=== PATIENT | female | born 1985 ===

== ENCOUNTER 2018-02-12 07:30 | Outpatient (CLI) | payer OTHER ==
[~2018-02-12] VITALS: Ht 167.6 cm; Wt 111.1 kg
== END 2018-02-12 07:45 | disposition home or self-care (01) ==
LOC: OFIC 805 07:30
DX: R22.1 Localized swelling, mass and lump, neck (principal); M54.2 Cervicalgia; R06.02 Shortness of breath

== ENCOUNTER 2018-02-25 07:10 | Outpatient (CLI) | payer OTHER | END 2018-02-25 07:12 | disposition home or self-care (01) | LOC: SONOGRAMA 07:10 | DX: R22.1 Localized swelling, mass and lump, neck (principal) ==

== ENCOUNTER 2018-03-04 15:14 | Outpatient (CLI) | payer OTHER ==
[~2018-03-04] VITALS: Ht 152.4 cm; Wt 111.1 kg
== END 2018-03-04 15:30 | disposition home or self-care (01) ==
LOC: OFIC 805 15:14
DX: M62.838 Other muscle spasm (principal); L08.9 Local infection of the skin and subcutaneous tissue, unspecified; R22.1 Localized swelling, mass and lump, neck

== ENCOUNTER 2018-03-14 11:31 | Outpatient (CLI) | payer OTHER ==
[~2018-03-14] VITALS: Ht 152.4 cm; Wt 111.1 kg
== END 2018-03-14 11:45 | disposition home or self-care (01) ==
LOC: OFIC 805 11:31
DX: R22.1 Localized swelling, mass and lump, neck (principal); M62.838 Other muscle spasm